=== PATIENT | female | born 1975 | race Caucasian/White ===

== ENCOUNTER → 2017-06-10 | Outpatient (CLI) | payer MEDICARE, MEDICAID ==
[~2017-06-10] MED LIST: AMANTADINE100 MG PO; BACTRIM DS 8001 TA1 PO; BACTRIM DS 8001 TAB PO; CLINDAMYCIN HC300 MG PO; CO-Q-10 200 MG-1 SGL PO; COENZYME Q-10200 M1 PO; ESCITALOPRAM10 M1 PO; GABAPENTIN300 MG PO; LEXAPRO 10 MG T10 MG PO; MEDROL 4MG. DOSE4 MG PO; QUETIAPINE FUMA25 M1 PO; RANITIDINE 7575 MG PO; RITE AID KRILL500 MG PO; SEROQUEL50 MG PO; SMZ-TMP PEDIAT200 ML PO; XENAZINE12.5 MG PO
== END ==
LOC: LAB 16:04
DX: R41.82 Altered mental status, unspecified (principal)